=== PATIENT | female | born 1945 | race African-American/Black ===

== ENCOUNTER → 2018-12-24 | Outpatient (REF) | payer MEDICARE, MEDICAID ==
[2018-12-24 08:51] LABS: HEMOGLOBIN 7.9 g/dl (12.0-16.0); IMMATURE GRANULOCYTES 0.4 % (0.0-5.0); MEAN CELL VOLUME 85.5 fL CALC (80.0-100.0); MEAN CORPUSCULAR HGB 26.1 pG CALC (26.0-32.0); MEAN CORPUSCULAR HGB CONC 30.5 g/L CALC (32.0-36.0); NEUT# 2.58 thou/uL (2.00-7.15); RED BLOOD COUNT 3.03 mill/uL (4.20-5.60); RED CELL DISTRI WIDTH 15.4 % (11.5-15.5)
[2018-12-24 08:52] LABS: HEMATOCRIT 25.9 % (37.0-47.0)
[2018-12-24 09:54] LABS: ANION GAP 14 (6-22 (CALC)); BUN 15 mg/dL (8-23); BUN/CREATININE RATIO 16 (12-20 (CALC)); CARBON DIOXIDE 28 mmol/l (22-30); CHLORIDE 103 mmol/l (95-108); GFR 55 ML/MIN (>=60 (CALC)); GFR FOR AFR.AMER. > 60 ML/MIN (>=60 (CALC)); SODIUM 141 mmol/l (137-146)
== END | disposition home or self-care (01) ==
LOC: LAB 08:06
PROVIDERS: ATTEND Physician Assistant Medical
DX: D64.9 Anemia, unspecified (principal); R31.29 Other microscopic hematuria

== ENCOUNTER 2021-10-10 20:09 | Emergency (ER) | payer MEDICARE, MEDICAID ==
[2021-10-10 21:14] LABS: IMMATURE GRANULOCYTES 0.3 % (0.0-5.0); MEAN CELL VOLUME 77.6 fL CALC (80.0-100.0); MEAN CORPUSCULAR HGB 22.4 pG CALC (26.0-32.0); MEAN CORPUSCULAR HGB CONC 28.9 g/dL CAL (32.0-36.0); NEUT# 5.6 thou/uL (2.00-7.15); RED BLOOD COUNT 3.12 mill/uL (4.20-5.60); RED CELL DISTRI WIDTH 19.1 % (11.5-15.5)
[2021-10-10 21:18] LABS: HEMATOCRIT 24.2 % (37.0-47.0)
[2021-10-10 21:25] LABS: ALBUMIN 3.5 g/dL (3.2-5.0); BILIRUBIN, TOTAL 0.7 mg/dL (0.0-1.4); CREATININE 3.1 mg/dL (0.5-1.0); POTASSIUM 4.1 mmol/l (3.5-5.1); TOTAL PROTEIN 7.9 g/dL (6.3-8.2)
[2021-10-10 22:22] LABS: INTERNATIONAL NORMALIZED RATIO 1.1 RATIO (0.7-1.3)
[2021-10-10 22:24] LABS: ACT PARTIAL THROMBO TIME 17.4 SECONDS (20.0-32.5)
[2021-10-10 22:56] VITALS: BP 160/74
[2021-10-10 23:01] VITALS: BP 156/70
[2021-10-10 23:06] VITALS: BP 173/81
[2021-10-10 23:11] VITALS: BP 162/73
[2021-10-11 01:02] VITALS: BP 145/84
== END 2021-10-11 01:05 ==
LOC: ED 20:09
PROC: 30233N1 Transfusion of Nonautologous Red Blood Cells into Peripheral Vein, Percutaneous Approach (ICD-10-PCS; principal; 2021-10-10)
DX: K92.2 Gastrointestinal hemorrhage, unspecified (principal); D64.9 Anemia, unspecified; R19.09 Other intra-abdominal and pelvic swelling, mass and lump; N13.30 Unspecified hydronephrosis; N17.9 Acute kidney failure, unspecified; Z20.822 Contact with and (suspected) exposure to COVID-19; Z86.010 Personal history of colon polyps; R53.83 Other fatigue
CPT/HCPCS: P9016; S0164

== ENCOUNTER 2021-11-13 21:47 | Emergency (ER) | payer MEDICARE, MEDICAID ==
[~2021-11-13] VITALS: Ht 162.6 cm; Wt 84.0 kg
[2021-11-13 23:27] LABS: HEMATOCRIT 24.3 % (37.0-47.0); HEMOGLOBIN 7.1 g/dl (12.0-16.0); IMMATURE GRANULOCYTES 0.6 % (0.0-5.0); MEAN CORPUSCULAR HGB 25.5 pG CALC (26.0-32.0); MEAN CORPUSCULAR HGB CONC 29.2 g/dL CAL (32.0-36.0); NEUT# 5.4 thou/uL (2.00-7.15); RED BLOOD COUNT 2.78 mill/uL (4.20-5.60); RED CELL DISTRI WIDTH 27.8 % (11.5-15.5)
[2021-11-13 23:43] LABS: MEAN CELL VOLUME 87.4 fL CALC (80.0-100.0)
[2021-11-13 23:47] LABS: ALKALINE PHOSPHATASE 231 u/l (38-126); BILIRUBIN, TOTAL 0.9 mg/dL (0.0-1.4); BUN 68 mg/dL (8-23); CHLORIDE 112 mmol/l (95-108); POTASSIUM 4.5 mmol/l (3.5-5.1); SGOT/AST 113 u/l (9-36); SODIUM 141 mmol/l (137-146)
[2021-11-13 23:50] LABS: URINE BLOOD DIPSTICK SMALL (NEGATIVE); URINE COLOR YELLOW; URINE GLUCOSE - DIPSTICK NEGATIVE (NEGATIVE); URINE KETONE TRACE mg/dL (NEGATIVE); URINE LEUK ESTERASE NEGATIVE (NEGATIVE); URINE PROTEIN - DIPSTICK 30 mg/dL (NEG-TRACE); URINE SPECIFIC GRAVITY >=1.030; URINE UROBILINOGEN - DIPSTICK 0.2 E.U./dL (0.2)
[2021-11-13 23:54] LABS: URINE BILIRUBIN - DIPSTICK SMALL (NEGATIVE); URINE NITRITE - DIPSTICK NEGATIVE (Negative)
[2021-11-13 23:57] LABS: URINE BACTERIA MANY hpf; URINE EPITHELIAL CELLS FEW EPI/hpf (0-FEW)
[2021-11-14] LABS: BUN/CREATININE RATIO 14 (12-20 (CALC)); GFR 8 ML/MIN (>=60 (CALC)); GFR FOR AFR.AMER. 10 ML/MIN (>=60 (CALC))
[2021-11-14 00:01] LABS: ALBUMIN 2.3 g/dL (3.2-5.0); ANION GAP 27 (6-22 (CALC)); CARBON DIOXIDE 7 mmol/l (22-30); TOTAL PROTEIN 5.9 g/dL (6.3-8.2)
[2021-11-14 00:35] VITALS: BP 95/62
[2021-11-14 00:41] LABS: MYOGLOBIN 958 ng/mL (0 - 62)
[2021-11-14 00:52] VITALS: BP 121/46
[2021-11-14 02:23] VITALS: BP 102/59
[2021-11-14 03:33] LABS: MEAN CELL VOLUME 85.5 fL CALC (80.0-100.0); MEAN CORPUSCULAR HGB 26.5 pG CALC (26.0-32.0); RED BLOOD COUNT 3.58 mill/uL (4.20-5.60); RED CELL DISTRI WIDTH 24.9 % (11.5-15.5)
[2021-11-14 03:48] LABS: HEMATOCRIT 30.6 % (37.0-47.0); HEMOGLOBIN 9.5 g/dl (12.0-16.0); IMMATURE GRANULOCYTES 0.5 % (0.0-5.0); NEUT# 8.97 thou/uL (2.00-7.15)
[2021-11-14 04:03] LABS: INTERNATIONAL NORMALIZED RATIO 1.4 RATIO (0.7-1.3)
[2021-11-14 04:41] LABS: PROTHROMBIN TIME 14.7 SECONDS (9.0-12.5)
[2021-11-14 05:26] VITALS: BP 120/73
== END 2021-11-14 05:23 | disposition short-term general hospital (02) ==
LOC: ED 21:47
PROVIDERS: Emergency Medicine
PROC: 0T9B70Z Drainage of Bladder with Drainage Device, Via Natural or Artificial Opening (ICD-10-PCS; principal; 2021-11-13)
PROC: 05HN33Z Insertion of Infusion Device into Left Internal Jugular Vein, Percutaneous Approach (ICD-10-PCS; 2021-11-13)
PROC: B544ZZA Ultrasonography of Left Jugular Veins, Guidance (ICD-10-PCS; 2021-11-13)
PROC: 30233N1 Transfusion of Nonautologous Red Blood Cells into Peripheral Vein, Percutaneous Approach (ICD-10-PCS; 2021-11-14)
DX: U07.1 COVID-19 (principal); J96.00 Acute respiratory failure, unspecified whether with hypoxia or hypercapnia; E87.2 Acidosis; I82.411 Acute embolism and thrombosis of right femoral vein; I82.431 Acute embolism and thrombosis of right popliteal vein; C18.9 Malignant neoplasm of colon, unspecified; R68.0 Hypothermia, not associated with low environmental temperature; D64.9 Anemia, unspecified; R79.89 Other specified abnormal findings of blood chemistry; N19 Unspecified kidney failure; S21.209A Unspecified open wound of unspecified back wall of thorax without penetration into thoracic cavity, initial encounter; X58.XXXA Exposure to other specified factors, initial encounter; Z93.6 Other artificial openings of urinary tract status; R82.71 Bacteriuria
CPT/HCPCS: J1644; J2060; P9016